=== PATIENT | male | born 1970 | race Caucasian/White ===

== ENCOUNTER 2017-01-31 02:14 | Emergency (ER) | payer SELFPAY ==
[~2017-01-31] VITALS: Ht 177.8 cm; Wt 85.0 kg
[~2017-01-31 02:14] MED LIST: CHLO25; LORA-474 PO; Z.0.NO CURRENT MEDS; ZOFR4TAB3 SL
[2017-01-31 02:31] VITALS: BP 127/86; PULSE 81; RESP 16; TEMP 98.4; O2SAT 97
--- NOTE | 2017-01-31 02:32 | PD ---
HPI Chief Complaint: alcohol intoxication Time Seen by Provider: 02:26 Travel History International Travel<30 days: No Contact w/Intl Traveler<30days: No Traveled to known affect area: No History of Present Illness HPI 46-year-old male with long-standing history of alcoholism, presents to the emergency department under a Michael act for evaluation. Patient was found lying in the street. She reports drinking a large amount of alcohol today. Denies any trauma. Denies any pain. Denies any suicidal or homicidal ideations. He denies any other symptoms at this time. [facility] Past Medical History Diminished Hearing: No Hypertension: Yes Social History Alcohol Use: Yes (ETOH DAILY) Tobacco Use: Yes Substance Use: No Allergies-Medications (Allergen,Severity, Reaction): Coded Allergies: penicillin G (Unverified Allergy, Intermediate, 12/22/16) Reported Meds & Prescriptions Reported Meds & Active Scripts Active No Active Prescriptions or Reported Medications Review of Systems ROS Limitations: Intoxication Except as stated in HPI: all other systems reviewed are Neg Physical Exam Exam Limitations: Intoxication Narrative GENERAL: Well-nourished male patient, clinically intoxicated with slurred speech , but in no acute distress. SKIN: Focused skin assessment warm/dry. HEAD: Atraumatic. Normocephalic. EYES: Pupils equal and round. No scleral icterus. No injection or drainage. ENT: No nasal bleeding or discharge. Mucous membranes pink and moist. NECK: Trachea midline. No JVD. CARDIOVASCULAR: Regular rate and rhythm. No murmur appreciated. RESPIRATORY: No accessory muscle use. Clear to auscultation. Breath sounds equal bilaterally. GASTROINTESTINAL: Abdomen soft, non-tender, nondistended. Hepatic and splenic margins not palpable. MUSCULOSKELETAL: No obvious deformities. No clubbing. No cyanosis. No edema. NEUROLOGICAL: Arousable. Oriented 3. Moves all extremities spontaneously. Slurred speech. Data Data Last Documented VS Vital Signs Date Time Temp Pulse Resp B/P (MAP) Pulse Ox O2 Delivery O2 Flow Rate FiO2 01/31/17 04:25 78 14 132/84 (100) 99 Room Air 01/31/17 02:31 98.4 [facility] Medical Decision Making Medical Screen Exam Complete: Yes Emergency Medical Condition: Yes Medical Record Reviewed: Yes Differential Diagnosis Intoxication versus polysubstance abuse versus mood disorder versus personality disorder Narrative Course 46-year-old male presents to the emergency department under a Michael act. Patient is clinically intoxicated. He admits to drinking a large amount of alcohol. He has no obvious trauma. He answers my questions appropriately although he does have slurred speech. The patient will be monitored until he is clinically sober at which time he'll be discharged. Diagnosis Primary Impression: Alcohol intoxication Qualified Codes: F10.929 - Alcohol use, unspecified with intoxication, unspecified Referrals: [facility] (Out patient) Primary Care Physician Patient Instructions: Abuse of Alcohol (ED), General Instructions Additional Instructions: Consumed alcohol in moderation Seek assistance in stopping to drink alcohol at [facility] or other detox facility Return immediately to the emergency department with any acute worsening of symptoms Med/Other Pt SpecificInfo: No Change to Meds Scripts No Active Prescriptions or Reported Meds Disposition: 01 DISCHARGE HOME Condition: Stable Margaux Cagle Jan 31, 2017 02:32
[2017-01-31 04:25] VITALS: BP 132/84; PULSE 78; RESP 14; O2SAT 99
== END 2017-01-31 10:57 | disposition home or self-care (01) ==
LOC: NEPB 02:14 → NEPD 10:57
DX: F10.229 Alcohol dependence with intoxication, unspecified (principal)
CPT/HCPCS: 99283

== ENCOUNTER 2018-06-21 20:50 | Inpatient (IN) ==
--- NOTE | 2018-06-21 21:24 | ED ---
HPI General Chief complaint: Alcohol Stated complaint: psych eval Time Seen by Provider: 06/21/18 21:23 Source: patient and family Mode of arrival: ambulatory Limitations: no limitations History of Present Illness HPI narrative: Patient was brought in by his sister, apparently he has been drinking alcohol heavily and started to have thoughts of suicidal ideation. He has easy access to multiple firearms which he collected and brought over to his sister and turn him over to her because he was afraid that he would use them on himself. Patient voices that he just wants to end it all. However his sister was able to convince him to come and seek some help Onset (ago): day(s) Radiation: other Severity: moderate (This is to quantify the patient's depressed feelings patient does not have any pain) Quality: other (No pain) Pain Consistency: other (No pain) Relieving factors: none Exacerbating factors: none Associated symptoms: Reports denies other symptoms Related Data Home Medications Medication Instructions Recorded Confirmed No Known Home Medications 04/26/18 06/21/18 Allergies Allergy/AdvReac Type Severity Reaction Status Date / Time penicillin G Allergy Intermediate Anaphylaxis Verified 06/21/18 20:57 Review of Systems ROS: all other systems reviewed are negative [facility] Medical History Medical History Arthritis (Acute) Surgical History Surgical History H/O knee surgery (Acute) Social History Social History Substance History: No History of Abuse Second Hand Smoke Exposure: No Smoking Status: Never smoker Tobacco Type: Cigarettes How Often Do You Have a Drink Containing Alcohol: 4 or more times a week Recent Travel in [facility] within the Last 8 Weeks: No Recent Out of Country Travel within the Last 8 Weeks: No Immunization History Tetanus Immunization: Unsure Exam Narrative Exam Narrative: GENERAL: MALE patient in no apparent distress. HOWEVER GOT TEARFUL DURING HPI SKIN: Warm and dry. HEAD: Atraumatic. Normocephalic. EYES: Pupils equal and round. No scleral icterus. No injection or drainage. ENT: No nasal bleeding or discharge. Mucous membranes pink and moist. NECK: Trachea midline. No JVD. CARDIOVASCULAR: Regular rate and rhythm. no rubs or gallops RESPIRATORY: No accessory muscle use. Clear to auscultation. Breath sounds equal bilaterally. GASTROINTESTINAL: Abdomen soft, non-tender, nondistended. No rebound or guarding MUSCULOSKELETAL: Extremities without clubbing, cyanosis, or edema. No obvious deformities. NEUROLOGICAL: Awake and alert. No obvious cranial nerve deficits. Motor grossly within normal limits. Five out of 5 muscle strength in the arms and legs. Normal speech. PSYCHIATRIC: DEPRESSED mood and SAD affect; Course Initial Documented Vital Signs Temperature 98.6 F 06/21/18 20:57 Pulse Rate 112 H 06/21/18 20:57 Respiratory Rate 16 06/21/18 20:57 Blood Pressure 169/102 H 06/21/18 20:57 Pulse Oximetry 94 L 06/21/18 20:57 Last Documented Vital Signs Temperature 98.6 F 06/21/18 20:57 Pulse Rate 112 H 06/21/18 20:57 Respiratory Rate 16 06/21/18 20:57 Blood Pressure 169/102 H 06/21/18 20:57 Pulse Oximetry 94 L 06/21/18 20:57 Medical Decision Making MDM Narrative Medical Screen Exam Complete: Yes Emergency Medical Condition: Yes Discharge Plan Discharge Disposition Patient Disposition: Sign Out(ED Internal Use Only) Physicians Team ED Provider: David Mina Rxs /Orders / Referrals /Forms Prescriptions: No Action No Known Home Medications RF: 0 Status ED Status: With Doctor
[2018-06-21 21:54] LABS: Baso % (Auto) 0.9 % (0.0-2.0); Eos % (Auto) 0.4 % (0.0-4.0); Hematocrit 41.5 % (39.0-51.0); Lymph # (Auto) 1.2 th/mm3 (1.0-4.8); Lymph % (Auto) 27.6 % (9.0-44.0); Mean Corpuscular HGB Conc 33.8 % (32.0-36.0); Mean Corpuscular Hemoglobin 30.5 pg (27.0-34.0); Mean Corpuscular Volume 90.4 fL (80.0-100.0); Mean Platelet Volume 6.4 fL (7.0-11.0); Mono # (Auto) 0.5 th/mm3 (0.0-0.9); Mono % (Auto) 12.3 % (0.0-8.0); Neut # (Auto) 2.6 th/mm3 (1.8-7.7); Neut % (Auto) 58.8 % (16.0-70.0); Platelet Count 266 th/mm3 (150-450); Red Blood Count 4.59 mil/mm3 (4.50-5.90); Red Cell Distribution Width 25.6 % (11.6-17.2); White Blood Count 4.4 th/mm3 (4.0-11.0)
[2018-06-21 22:05] LABS: Alanine Aminotransferase 61 U/L (12-78); Albumin 3.8 g/dL (3.4-5.0); Anion Gap 10 meq/L (5-15); Aspartate Aminotransferase 112 U/L (15-37); Blood Urea Nitrogen 9 mg/dL (7-18); Calcium 8.4 mg/dL (8.5-10.1); Carbon Dioxide 26.9 meq/L (21.0-32.0); Chloride 102 meq/L (98-107); Glomerular Filtration Rate 49 mL/min (>89); Glucose,Random 105 mg/dL (74-106); Potassium 3.9 meq/L (3.5-5.1); Sodium 139 meq/L (136-145)
[2018-06-21 22:10] LABS: Alkaline Phosphatase 92 U/L (45-117); Total Protein 8.4 g/dL (6.4-8.2)
[2018-06-21 22:15] LABS: Alcohol 331 mg/dL (0-5)
[2018-06-21 22:29] LABS: Spherocytes Occ
[2018-06-21 22:30] LABS: Ovalocytes 1+; Platelet Estimate Normal (Normal); Platelet Morphology Normal (Normal)
[2018-06-21 22:37] LABS: Amphetamine Screen,Urine Neg (Neg); Barbiturate Screen,Urine Neg (Neg); Cannabinoid Screen,Urine Neg (Neg); Cocaine Screen,Urine Pos (Neg)
[2018-06-21 22:42] LABS: Opiate Screen,Urine Neg (Neg)
[2018-06-21] MEDS ORDERED: Haloperidol Inj 5 MG/ML Ampul IV.PUSH PRN (22:51)
[2018-06-22] MEDS ORDERED: Aluminum/Magnesium/Simethacone Susp 30 ML UDC PO PRN (10:51)
[2018-06-22] MEDS ORDERED: Acetaminophen 325 MG Tablet PO PRN (10:51)
[2018-06-22] MEDS ORDERED: Haloperidol Inj 5 MG/ML Ampul IV.PUSH PRN (11:07)
[2018-06-22] MEDS: LORazepam 1 MG Tablet PO PRN ×3 (12:41→21:32)
[2018-06-22] MEDS: Folic Acid 1 MG Tablet PO SCH (12:41)
[2018-06-22] MEDS: Multivitamin/Minerals Therapeutic Tablet PO SCH (15:41)
--- NOTE | 2018-06-22 16:36 | ED ---
HPI - Psych - General Time Seen by Psych Provider: 10:22 Source: patient, family Mode of arrival: ambulatory Limitations: no limitations - History of Present Illness MD complaint: feels depressed Onset (ago): year(s) Duration: intermittent, changing over time, getting worse History of same: Yes Relieving factors: none Exacerbating factors: alcohol Context: recent alcohol abuse Associated psychiatric symptoms: depression, suicidal ideation, visual hallucinations Associated symptoms: nausea Treatments prior to arrival: placed on mental health hold - General Chief Complaint: Alcohol Stated Complaint: psych eval Time Seen by Provider: 06/21/18 21:23 - History of Present Illness HPI Narrative: This is a 48-year old , male who presents to this emergency department for suicidal ideation in the context of intoxication. He was placed under Shah act by the ED physician. Reviewed electronic medical record, labs, discussed case with staff. Patient's toxicology screen is noted to be positive for cocaine and his serum blood alcohol level was 0.331 at 9:35 PM last evening. Patient was assessed in 110. He is found disheveled and clad in [facility]. He is awake, alert, and oriented x4. His speech is slow as are his responses to my questions. He is denying active suicidal ideation but states that in the context of his alcoholism he is afraid he would take his life. He denies being homicidal or experiencing auditory hallucinations. He does endorse visual hallucinations in the context of his withdrawal stating that "when I look at the keller I see faces and glimpses of things." Patient is easily distractible throughout her conversation but attempts to remain cooperative. There is no indication of psychosis nor of rubens. I can elicit no delusional material. "I feel a little shaky." Patient reports that he has had on again off again problem with alcohol spanning decades. He states that he was on a 30-day program in [place] approximately 15 years ago. He reports that he remained sober for approximately 1-1/2 years after that. He then began drinking every day however, his drinking grew worse over the holidays. He reports now that he typically drinks 4 pack +325 ounce beers daily and states that his first drink is typically around 7 AM. 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 He is a high school graduate. He denies any previous admissions for psychiatric issues. He denies having established with an outpatient psychiatric provider as well. He does state he received fluoxetine while at [facility] years ago but did not continue it once discharged. He reports that he attempted suicide by cutting his wrists 8 years ago. He denies any knowledge of familial mental health issues. He does state that he was a cutter as a teenager. He denies smoking cigarettes, states that he drinks daily, and reports smoking marijuana "1-2 times a year". (Henna Vega) - Related Data Home Medications Medication Instructions Recorded Confirmed No Known Home Medications 04/26/18 06/21/18 Allergies Allergy/AdvReac Type Severity Reaction Status Date / Time penicillin G Allergy Intermediate Anaphylaxis Verified 06/21/18 20:57 Review of Systems All other systems reviewed negative except as stated in [facility] - History History Provided By: Patient - Medical History Medical History: Medical History (Last Reviewed 06/22/18 @ 16:32 by YURIY Mitchell) Arthritis - Surgical History Surgical History: Surgical History (Last Reviewed 06/22/18 @ 16:32 by YURIY Mitchell) H/O knee surgery - Tobacco History Second Hand Smoke Exposure: Yes Smoking Status: Never smoker Tobacco Type: Cigarettes - Alcohol History How Often Do You Have a Drink Containing Alcohol: 4 or more times a week - Substance Use History Substance History: Active Abuse, Past History - Substance Use Type Alcohol Status: Active Route Used: By Mouth Frequency: daily Reason for Use: Calm Down, Feels Good Crack/Cocaine Status: Active Route Used: Inhalation Frequency: this was one time event Reason for Use: Calm Down Marijuana Status: Active Route Used: Inhalation Frequency: infrequently Reason for Use: Calm Down - Travel History Recent Travel in the [place] Within the Last 8 Weeks: No Recent Travel Out of the Country Within the Last 8 Weeks: No - Immunization History Tetanus Immunization: >5 Years Hx Influenza Vaccine This Season: No Psychiatric History - Psychiatric History Psychiatric Treatment History: History Substance Abuse Treatment History of Inpatient Treatment: No Firearms in Home: No - Psychiatric History History of substance abuse treatment. (Henna Vega) - Family Psychiatric History Denies (Henna Vega) Physical Exam - General Limitations: no limitations General appearance: anxious - Head Head exam: atraumatic - Psychiatric Psychiatric exam: Present: anxious - Skin Skin exam: Present: diaphoresis Mental Status Examination Appearance: Disheveled Consciousness: Alert Orientation: x4 Motor Activity: Normal gait Speech: Hesitant, Slow Language: Adequate Fund of Knowledge: Adequate Attention and Concentration: Easily distracted Memory: Unremarkable Mood: Anxious Affect: Anxious Thought Process & Associations: Intact, Logical Thought Content: Appropriate Hallucination Type: Visual Delusion Type: None Suicidal Ideation: Yes Suicidal Plan: No Suicidal Intention: No Homicidal Ideation: No Homicidal Plan: No Homicidal Intention: No Insight: Fair Judgment: Impulsive Initial Documented Vital Signs Temperature 98.6 F 06/21/18 20:57 Pulse Rate 112 H 06/21/18 20:57 Respiratory Rate 16 06/21/18 20:57 Blood Pressure 169/102 H 06/21/18 20:57 Pulse Oximetry 94 L 06/21/18 20:57 Last Documented Vital Signs Temperature 98.4 F 06/22/18 12:25 Pulse Rate 89 06/22/18 12:25 Respiratory Rate 17 06/22/18 12:25 Blood Pressure 162/104 H 06/22/18 12:25 Pulse Oximetry 96 06/22/18 12:25 MDM - Psych - Diagnosis (1) Alcohol-induced mood disorder Code(s): F10.94 - Alcohol use, unspecified with alcohol-induced mood disorder Status: Acute - Lab Data Result diagrams: 06/21/18 21:35 06/21/18 21:35 - [facility] Narrative Medical decision making narrative: Given that the patient is actively withdrawing from alcohol at this time and endorses suicide in the context of his alcoholism he is being admitted to a locked inpatient psychiatric unit for further evaluation and treatment as deemed necessary. He will be admitted under the Shah act with a [facility] protocol in place. (Henna Vega) - Lab Data Lab Results 06/21/18 06/21/18 06/21/18 Range/Units 21:35 21:35 21:50 WBC 4.4 (4.0-11.0) th/mm3 RBC 4.59 (4.50-5.90) mil/mm3 Hgb 14.0 (13.0-17.0) gm/dL Hct 41.5 (39.0-51.0) % MCV 90.4 (80.0-100.0) fL MCH 30.5 (27.0-34.0) pg MCHC 33.8 (32.0-36.0) % RDW 25.6 H (11.6-17.2) % Plt Count 266 (150-450) th/mm3 MPV 6.4 L (7.0-11.0) fL Prelim Diff (Auto) Slide review pending Neut % (Auto) 58.8 (16.0-70.0) % Lymph % (Auto) 27.6 (9.0-44.0) % [place] % (Auto) 12.3 H (0.0-8.0) % Eos % (Auto) 0.4 (0.0-4.0) % Baso % (Auto) 0.9 (0.0-2.0) % Neut # (Auto) 2.6 (1.8-7.7) th/mm3 Lymph # (Auto) 1.2 (1.0-4.8) th/mm3 [place] # (Auto) 0.5 (0.0-0.9) th/mm3 Eos # (Auto) 0.0 (0.0-0.4) th/mm3 Baso # (Auto) 0.0 (0.0-0.2) th/mm3 WBC Differential . Diff Scan Auto diff confirmed Differential Comment . Platelet Estimate Normal (Normal) Platelet Morphology Normal (Normal) Spherocytes Occ H (None) Ovalocytes 1+ H (None) Sodium 139 (136-145) meq/L Potassium 3.9 (3.5-5.1) meq/L Chloride 102 (98-107) meq/L Carbon Dioxide 26.9 (21.0-32.0) meq/L Anion Gap 10 (5-15) meq/L BUN 9 (7-18) mg/dL Creatinine 1.53 H (0.60-1.30) mg/dL Estimated GFR 49 L (>89) mL/min Random Glucose 105 (74-106) mg/dL Calcium 8.4 L (8.5-10.1) mg/dL Total Bilirubin 0.3 (0.2-1.0) mg/dL AST 112 H (15-37) U/L ALT 61 (12-78) U/L Alkaline Phosphatase 92 (45-117) U/L Total Protein 8.4 H (6.4-8.2) g/dL Albumin 3.8 (3.4-5.0) g/dL Urine Opiates Screen Neg (Neg) Ur Barbiturates Screen Neg (Neg) Ur Amphetamines Screen Neg (Neg) U Benzodiazepines Scrn Neg (Neg) Urine Cocaine Screen Pos H (Neg) U Cannabinoids Screen Neg (Neg) Serum Alcohol 331 H (0-5) mg/dL
[2018-06-23] MEDS: LORazepam 1 MG Tablet PO PRN (05:51)
[2018-06-23 07:47] LABS: Calcium 9.3 mg/dL (8.5-10.1); Potassium 3.6 meq/L (3.5-5.1)
[2018-06-23 07:49] LABS: Chol/HDL Ratio 2.58 Ratio; HDL Cholesterol 99.5 mg/dL (40.0-60.0)
[2018-06-23] MEDS: Multivitamin/Minerals Therapeutic Tablet PO SCH (08:31)
[2018-06-23] MEDS: Folic Acid 1 MG Tablet PO SCH (08:31)
--- NOTE | 2018-06-23 11:40 | ECG ---
Date Performed: 06/23/2018 Time Performed: 07:57:26 PTAGE: 48 years EKG: Sinus rhythm POOR R-WAVE PROGRESSION CANNOT EXCLUDE ANTEROSEPTAL IL VS SEPTAL LEAD PLACEMENT. ABNORMAL ECG NO PREVIOUS TRACING DOCTOR: Saad Neil Interpretating Date/Time 06/23/2018 11:37:29
--- NOTE | 2018-06-23 13:08 | P.HPPSY ---
Provisional Diagnosis Admission Date: June 22, 2018 10:48 Strang I.: Major depressive disorder, alcohol use disorder Competence Certification of Person's Competence To Provide Express and Informed Consent I have personally examined Romero Cooley, a person being served at [facility] on, June 23, 2018 1252. Express and informed consent means consent voluntarily given in writing, by a competent person, after sufficient explanation and disclosure of the subject matter involved to enable the person to make a knowing and willful decision without any element of force, fraud, deceit, duress, or other form of constraint or coercion. This person is 18 years of age or older, is not now known to be incompetent to consent to treatment with a guardian advocate, and does not have a health care surrogate or proxy currently making medical treatment decisions. I have found this person to be one of the following: [xxx] Competent to provide express and informed consent, as defined above, for voluntary admission to this facility and is competent to provide express and informed consent for treatment. He/she has the consistent capacity to make well reasoned, willful, and knowing decisions concerning his or her medical or mental health treatment. The person fully and consistently understands the purpose of the admission for examination/placement and is fully capable of personally exercising all rights assured [place] [] Incompetent to provide express and informed consent to voluntary admission, and this is incompetent to provide express and informed consent to treatment. The person must be transferred to involuntary status and a petition for a guardian advocate filed with the Circuit Court. [] Refusing to provide express and informed consent to voluntary admission but is competent to provide express and informed consent for treatment. The person must be discharged or transferred to involuntary status. Form shall be completed within 24 hours of a person's arrival at the receiving facility and filed in the clinical record of each person: 1. Admitted on a voluntary basis 2. Permitted to provide express and informed consent to his/her own treatment 3. Allowed to transfer from involuntary to voluntary status 4. Prior to permitting a person to consent to his or her own treatment after having been previously found incompetent to consent to treatment. History of Present Illness Capacity: Has capacity History of Present Illness: Patient is a 48-year-old man, , has 4 children, domiciled sister and mother, with a legal history significant for previous DUIs, past psychiatric history of depression, alcohol use disorder, denies prior psychiatric admissions, reports one previous suicide attempt via cutting it years ago, remote history of cutting as a teenager, no outpatient mental health provider at this time, brought in by sister due to having suicide ideation in the context of cocaine and alcohol intoxication which patient was admitted to the inpatient psychiatry for further evaluation and management. As per chart patient was brought in by sister endorsing suicide ideation which he had brought over his firearms to her sister asking for help stating that he wanted to end it all. Patient's BAL was 331, cocaine positive on urine toxicology, noted to have mild hyponatremia as per labs. Patient was Shah act by ED physician. Patient was found lying in hospital bed noted to be cooperative, noted to have mild tremors noted with some speech delay. Patient states that he has been drinking on a daily basis for the past 3 months but was 6 months prior sober. He states his longest sobriety was 1-1/2 years after rehabilitation [address] at that time. He reports for the past couple of weeks that he is having disruptive sleep, decreased appetite energy and concentration along with feeling less motivated and feeling depressed for the past 2-3 weeks along with suicide ideation. He states that stressors include having difficulty to quit drinking, having to pay child support and work not being steady. He reports also having had hopelessness and helplessness which occurred on and off but denying any auditory hallucinations. He states that recently been having visual hallucinations which he believes is secondary to his withdrawal but denying any suicide ideation at this time. He states having a sister is firearms due to his concern of having suicide ideations. Patient agrees to voluntary admission and agrees to starting antidepressant treatment along with continued medical management of his withdrawal at this time. Patient states being interested in rehabilitation program to engage in again but unsure whether he would like inpatient versus outpatient. This will be continued to be explored during his admission. Family psychiatric history: Aunt with depression, no suicides in the family Past psychiatric history: Previous psychiatric diagnoses depression, alcohol use disorder, denies any previous psychiatric admissions, history of 1 suicide attempt via cutting, 8 years ago, reports remote history of self interest behavior cutting as a teenager. Patient has no outpatient mental health follow- up, reports previous medication trials include Prozac and Wellbutrin which he last took 2 years ago. Substance use history: Alcohol use daily as stated in HPI, denies any drug use although urine toxicology was positive for cocaine, reports marijuana use 1-2 times per year. Patient has had one previous rehabilitation program 2000 as stated above. Past OB history: Hypertension, arthritis, was having suffered one seizure after head trauma 2004 Allergies: Penicillin Social history: , high school graduate, has 4 children, domiciled sister and mother, legal history of previous DUIs and driving with a suspended license, currently employed. - Inpatient Certification I certify that the inpatient services were ordered in accordance with Medicare regulations governing the order. This includes certification that hospital inpatient services are reasonable and necessary and in the case of services not specified as inpatient-only under 42 CFR 419.22(n), that they are appropriately provided as inpatient services in accordance to with the 2-midnight benchmark under 43 CFR 412.3(e) I certify that inpatient psychiatric hospital services are medically necessary. Evaluation and treatment and/or diagnostic testing are expected to improve the patient's condition. The patient needs on a daily basis, active treatment furnished directly by or requiring the supervision of inpatient psychiatric facility personnel. Estimated Total Length of Stay (Days): 5 Plans for Post Hospital Care: Home Review of Systems All other systems reviewed negative except as stated in HPI PMFSH - History History Provided By: Patient, Medical Record - Medical History Medical History: Medical History (Last Reviewed 06/23/18 @ 08:10 by Paolo Bella) Arthritis - Surgical History Surgical History: Surgical History (Last Reviewed 06/23/18 @ 08:10 by Paolo Bella) H/O knee surgery - Tobacco History Second Hand Smoke Exposure: Yes Smoking Status: Never smoker Tobacco Type: Cigarettes - Alcohol History How Often Do You Have a Drink Containing Alcohol: 4 or more times a week - Substance Use History Substance History: Active Abuse, Past History - Substance Use Type Alcohol Status: Active Route Used: By Mouth Frequency: daily Reason for Use: Calm Down, Feels Good Crack/Cocaine Status: Active Route Used: Inhalation Frequency: this was one time event Reason for Use: Calm Down Comment: Patient denies usage of any other drugs to counselor. Marijuana Status: Active Route Used: Inhalation Frequency: infrequently Reason for Use: Calm Down Comment: Patient reports he smokes maybe 1-2 times per year. - Travel History Recent Travel in the [place] Within the Last 8 Weeks: No Recent Travel Out of the Country Within the Last 8 Weeks: No - Immunization History Tetanus Immunization: >5 Years Hx Influenza Vaccine This Season: No Quality Measures - Psychiatric History Violence risk to others in the last 6 months: Low Violence risk to self in the last 6 months: Elevated due to recent suicidal ideation - Substance Abuse History Drug or alcohol use in the past 12 months: See HPI - Patient Strengths Patient's strengths (minimum of 2): Verbal and communicative Medications and Allergies Active Medications: Active Medications Acetaminophen (Tylenol) 650 mg PO Q4H PRN PRN Reason: Pain 1-5 or Temp >101F Al Hydrox/Mg Hydrox/Simethicone (Mag-Al Plus Susp Liq) 30 ml PO Q6H PRN PRN Reason: DYSPEPSIA Al Hydroxide/Mg Hydroxide (Milk Of Magnesia Liq) 30 ml PO Q12H PRN PRN Reason: Mild Constipation Clonidine HCl (Catapres) 0.1 mg PO Q6H PRN PRN Reason: For SBP >/= 180, DBP >/= 100 Last Admin: 06/23/18 05:51 Dose: 0.1 mg Diphenhydramine HCl (Benadryl) 50 mg PO HS PRN PRN Reason: INSOMNIA Flumazenil (Romazicon Inj) 0.2 mg IV.PUSH Q1M PRN PRN Reason: OVERSEDATION Folic Acid (Folic Acid) 1 mg PO DAILY [facility]ILMA Stop: 06/27/18 11:29 Last Admin: 06/23/18 08:31 Dose: 1 mg Haloperidol Lactate (Haldol Inj) 1 mg IV.PUSH Q15M PRN PRN Reason: for severe agitation Hydroxyzine HCl (Atarax) 50 mg PO Q6H PRN PRN Reason: ANXIETY Lorazepam (Ativan Inj) 1 mg IV.PUSH Q4H PRN PRN Reason: for CIWA 8-10 Lorazepam (Ativan Inj) 2 mg IV.PUSH Q15M PRN PRN Reason: for CIWA > 20 Lorazepam (Ativan Inj) 2 mg IV.PUSH Q1H PRN PRN Reason: for CIWA 15-20 Lorazepam (Ativan Inj) 2 mg IV.PUSH Q2H PRN PRN Reason: for CIWA 11-14 Lorazepam (Ativan) 2 mg PO Q2H PRN PRN Reason: for CIWA 11-14 Last Admin: 06/22/18 09:14 Dose: 2 mg Lorazepam (Ativan) 1 mg PO Q4H PRN PRN Reason: for CIWA 8-10 Last Admin: 06/23/18 05:51 Dose: 1 mg Multivitamins/Minerals (Theragran-M) 1 tab PO DAILY [facility] Stop: 06/27/18 11:29 Last Admin: 06/23/18 08:31 Dose: 1 tab Ondansetron HCl (Zofran Odt) 4 mg PO Q6H PRN PRN Reason: NAUSEA OR VOMITING Last Admin: 06/23/18 04:49 Dose: 4 mg Sertraline HCl (Zoloft) 50 mg PO DAILY [facility] Thiamine HCl (Vitamin B1) 100 mg PO DAILY [facility] Last Admin: 06/23/18 08:31 Dose: 100 mg Allergies Allergy/AdvReac Type Severity Reaction Status Date / Time penicillin G Allergy Intermediate Anaphylaxis Verified 06/21/18 20:57 Home Medications Medication Instructions Recorded Confirmed Type No Known Home Medications 04/26/18 06/21/18 History Results - Labs CBC & Chem 7: 06/21/18 21:35 06/23/18 06:42 Labs: Laboratory Results - last 24 hr 06/23/18 06:42 Sodium 135 L Potassium 3.6 Chloride 97 L Carbon Dioxide 29.0 Anion Gap 9 BUN 9 Creatinine 1.30 Estimated GFR 59 L Random Glucose 98 Calcium 9.3 D Triglycerides 117 Cholesterol 257 H LDL Cholesterol, Calc 134 H HDL Cholesterol 99.5 H Cholesterol/HDL Ratio 2.58 Exam Vital signs: Vital Signs 06/22/18 17:03 06/23/18 06:01 06/23/18 06:27 Temperature 98.6 F 97.2 F L Pulse Rate 89 90 Respiratory Rate 17 18 Blood Pressure 152/95 H 170/106 H 155/87 H Pulse Oximetry 96 99 Intake & Output 06/22/18 06/23/18 06/23/18 18:59 06:59 18:59 Intake Total 120 / 120 240 / 240 Balance 120 / 120 240 / 240 Weight 76.2 kg Intake: Oral 120 / 120 240 / 240 Other: # Voids 2 Weight On Admission 76.2 kg Narrative: Patient not noted to be in acute distress, no gross motor abnormalities, signs of tremor, no EPS, no psychomotor agitation or retardation. - Constitutional no acute distress, cooperative Mental Status Examination Appearance: Disheveled Consciousness: Alert Orientation: x4 Motor Activity: Normal gait Speech: Hesitant, Slow Language: Adequate Fund of Knowledge: Adequate Attention and Concentration: Easily distracted Memory: Unremarkable Mood: Anxious Affect: Anxious Thought Process & Associations: Intact, Logical Thought Content: Appropriate Hallucination Type: Visual Delusion Type: None Suicidal Ideation: Yes (Denies at this time but currently unreliable to contract for safety) Suicidal Plan: No Suicidal Intention: No Homicidal Ideation: No Homicidal Plan: No Homicidal Intention: No Insight: Fair Judgment: Impulsive Assessment and Plan - Assessment (1) Major depressive disorder Code(s): F32.9 - Major depressive disorder, single episode, unspecified Status : Acute (2) Alcohol abuse Code(s): F10.10 - Alcohol abuse, uncomplicated Status: Acute - Plan Plan: Estimated LOS: [] days Patient is a 48-year-old man who carries a diagnosis of depression, alcohol use disorder, no previous psychiatric admissions, one remote suicide attempt via cutting 8 years ago, history of self interest behavior via cutting as a teenager, with a past medical significant for hypertension, recently admitted under Shah act by ED physician after presenting with his sister to the ED which patient was endorsing suicide ideation in the context of alcohol intoxication and cocaine intoxication. Patient this time continues to have active withdrawal symptoms which is managed by WA protocol, has had depressive symptoms since suicide ideations for the past several weeks which patient requires inpatient psychiatric stabilization and for safety at this time. We will start patient on sertraline 50 mg p.o. daily for depression, continue to monitor mood and behavior. Patient agrees to voluntary admission has capacity to treatment. Social work intervention for psychosocial assessment. We will explore possibilities of patient engaging in rehabilitation program. Discharge planning in progress. Justification for Continued Inpatient Stay: At risk of further decompensation at lower level care.
[2018-06-23] MEDS: Sertraline 50 MG Tablet PO SCH (14:12)
[2018-06-23 16:22] LABS: Hemoglobin A1c 5.3 % (4.3-6.0)
[2018-06-24] MEDS: Multivitamin/Minerals Therapeutic Tablet PO SCH (08:03)
[2018-06-24] MEDS: Sertraline 50 MG Tablet PO SCH (08:03)
[2018-06-24] MEDS: Folic Acid 1 MG Tablet PO SCH (08:03)
[2018-06-24] MEDS: LORazepam 1 MG Tablet PO PRN (13:41)
--- NOTE | 2018-06-24 14:12 | P.PNPSY ---
Subjective Remarks: Patient seen for follow up; chart reviewed. Discussion with nursing staff reported that patient continues to have blunted affect but calm and cooperative with staff allowing for care, had poor sleep this evening, and endorsing some visual hallucinations he continues on CIWA protocol. Patient was found lying in hospital bed noted B, cooperative. Patient noted to have some speech latency still, with mild tremors noted, stated he had trouble with sleep last evening but was able to receive Benadryl in the middle night which helped. Patient continues with poor appetite and states that is slowly getting better continues report feeling depressed but also states that is improving denying any suicide ideations at this time. Patient denies any perceptual services but recalls having visual hallucinations which are vague which appear to occur as he is falling asleep. Patient continues to be interested in rehabilitation program but mostly outpatient as he states he needs to pay for child support and work. Patient denies any HI or delusions at this time. Review of Systems All other systems reviewed negative except as stated in HPI Mental Status Examination Appearance: Disheveled Consciousness: Alert Orientation: x4 Motor Activity: Normal gait Speech: Hesitant, Slow Language: Adequate Fund of Knowledge: Adequate Attention and Concentration: Easily distracted Memory: Unremarkable Mood: Anxious Affect: Anxious (Lessening) Thought Process & Associations: Intact, Logical Thought Content: Appropriate Hallucination Type: Visual Delusion Type: None Suicidal Ideation: Yes (denies today) Suicidal Plan: No Suicidal Intention: No Homicidal Ideation: No Homicidal Plan: No Homicidal Intention: No Insight: Fair Judgment: Impulsive Assessment and Plan - Assessment (1) Major depressive disorder Code(s): F32.9 - Major depressive disorder, single episode, unspecified Status : Acute (2) Alcohol abuse Code(s): F10.10 - Alcohol abuse, uncomplicated Status: Acute - Plan Plan: Patient continued with depressed mood but states it is improving denying suicide ideations today. Patient continues to be noted with mild withdrawal symptoms continues on CIWA protocol. We will continue current treatment. We will change diphenhydramine as scheduled to assist with sleep disturbance. Continue monitor mood and behavior. Patient continues to be interested in rehabilitation program but stated he has mostly treatment outpatient as he continued to need to work to the past his child support. Continue to monitor with behavior. Discharge planning in progress. Justification for Continued Inpatient Stay: At risk of further decompensation at lower level care.
[2018-06-24 14:42] LABS: Albumin 3.9 g/dL (3.4-5.0); Anion Gap 8 meq/L (5-15); Aspartate Aminotransferase 57 U/L (15-37); Blood Urea Nitrogen 15 mg/dL (7-18); Calcium 9.8 mg/dL (8.5-10.1); Carbon Dioxide 30.2 meq/L (21.0-32.0); Chloride 99 meq/L (98-107); Glomerular Filtration Rate 50 mL/min (>89); Glucose,Random 110 mg/dL (74-106); Potassium 3.9 meq/L (3.5-5.1); Sodium 137 meq/L (136-145)
[2018-06-24 14:43] LABS: Alanine Aminotransferase 49 U/L (12-78)
[2018-06-24 14:45] LABS: Alkaline Phosphatase 93 U/L (45-117); Total Protein 8.8 g/dL (6.4-8.2)
[2018-06-25] MEDS: Sertraline 50 MG Tablet PO SCH (08:00)
[2018-06-25] MEDS: LORazepam 1 MG Tablet PO PRN ×3 (08:00→15:52)
[2018-06-25] MEDS: Folic Acid 1 MG Tablet PO SCH (08:00)
[2018-06-25] MEDS: Multivitamin/Minerals Therapeutic Tablet PO SCH (08:00)
--- NOTE | 2018-06-25 17:19 | P.PNPSY ---
Subjective Remarks: Patient was seen to review a right of release request. After psychoeducation patient has decided to rescind his request. Patient continues to feel hopeless and helpless but denies suicidal or homicidal ideation intent or plan. He is behaving well on the unit. No outbursts. Minimizes drug use. Continues to score highly on the CIWA and his getting Ativan per protocol Review of Systems All other systems reviewed negative except as stated in HPI Mental Status Examination Appearance: Disheveled Consciousness: Alert Orientation: x4 Motor Activity: Normal gait Speech: Hesitant, Slow Language: Adequate Fund of Knowledge: Adequate Attention and Concentration: Easily distracted Memory: Unremarkable Mood: Anxious Affect: Anxious (Lessening) Thought Process & Associations: Intact, Logical Thought Content: Appropriate Hallucination Type: Visual Delusion Type: None Suicidal Ideation: Yes (denies today) Suicidal Plan: No Suicidal Intention: No Homicidal Ideation: No Homicidal Plan: No Homicidal Intention: No Insight: Fair Judgment: Impulsive Assessment and Plan - Assessment (1) Major depressive disorder Code(s): F32.9 - Major depressive disorder, single episode, unspecified Status : Acute (2) Alcohol abuse Code(s): F10.10 - Alcohol abuse, uncomplicated Status: Acute - Plan Plan: Continue current treatment plan Justification for Continued Inpatient Stay: Patient would decompensate in a less restrictive setting
[2018-06-26] MEDS: Folic Acid 1 MG Tablet PO SCH (09:11)
[2018-06-26] MEDS: Sertraline 50 MG Tablet PO SCH (09:11)
[2018-06-26] MEDS: Multivitamin/Minerals Therapeutic Tablet PO SCH (09:11)
--- NOTE | 2018-06-26 15:04 | P.PNPSY ---
Subjective Remarks: Reviewed electronic medical record and discussed with nursing staff. Rounded with STEPHEN Pérez. Patient in bed, sweating and working through his alcoholism. He is currently on the CIWA protocol. Nursing reports that earlier he was hallucinating and behavior was bizarre as he was trying to ride the half door at the nursing station. He appears more alert, less intrusive and less bizarre. He is answering questions appropriately. Continue to monitor. Denies SI/HI. Encouraged him to take a shower when he feels that he can stand independently. Review of Systems All other systems reviewed negative except as stated in HPI Mental Status Examination Appearance: Disheveled Consciousness: Alert Orientation: x4 Motor Activity: Normal gait Speech: Hesitant, Slow Language: Adequate Fund of Knowledge: Adequate Attention and Concentration: Easily distracted Memory: Unremarkable Mood: Anxious Affect: Anxious (Lessening) Thought Process & Associations: Intact, Logical Thought Content: Appropriate Hallucination Type: Visual Delusion Type: None Suicidal Ideation: No Suicidal Plan: No Suicidal Intention: No Homicidal Ideation: No Homicidal Plan: No Homicidal Intention: No Insight: Fair Judgment: Impulsive Assessment and Plan - Assessment (1) Alcohol abuse Code(s): F10.10 - Alcohol abuse, uncomplicated Status: Acute (2) Major depressive disorder Code(s): F32.9 - Major depressive disorder, single episode, unspecified Status : Acute - Plan Plan: Continue current treatment plan Justification for Continued Inpatient Stay: Moving patient to a less restrictive environment may result in his decompensation.
[2018-06-26 19:16] VITALS: RESP 18; O2SAT 96
[2018-06-26] MEDS: LORazepam 1 MG Tablet PO PRN (21:58)
[2018-06-27 06:43] VITALS: BP 155/98; PULSE 62; TEMP 98.9
[2018-06-27] MEDS: Sertraline 50 MG Tablet PO SCH (09:07)
[2018-06-27] MEDS: Multivitamin/Minerals Therapeutic Tablet PO SCH (09:07)
[2018-06-27] MEDS: Folic Acid 1 MG Tablet PO SCH (09:07)
--- NOTE | 2018-06-27 17:00 | P.DSPSY ---
Psychiatry Discharge Summary Inpatient Psychiatric care?: Yes Advance Directives: No Mental Health Advance Directive: No Health Care Proxy: No - Admission Admission Date: June 22, 2018 10:48 - Admission Diagnosis (1) Alcohol abuse Code(s): F10.10 - Alcohol abuse, uncomplicated (2) Major depressive disorder Code(s): F32.9 - Major depressive disorder, single episode, unspecified Brief History: Patient is a 48-year-old man, , has 4 children, domiciled sister and mother, with a legal history significant for previous DUIs, past psychiatric history of depression, alcohol use disorder, denies prior psychiatric admissions, reports one previous suicide attempt via cutting it years ago, remote history of cutting as a teenager, no outpatient mental health provider at this time, brought in by sister due to having suicide ideation in the context of cocaine and alcohol intoxication which patient was admitted to the inpatient psychiatry for further evaluation and management. As per chart patient was brought in by sister endorsing suicide ideation which he had brought over his firearms to her sister asking for help stating that he wanted to end it all. Patient's BAL was 331, cocaine positive on urine toxicology, noted to have mild hyponatremia as per labs. Patient was Shah act by ED physician. Patient was found lying in hospital bed noted to be cooperative, noted to have mild tremors noted with some speech delay. Patient states that he has been drinking on a daily basis for the past 3 months but was 6 months prior sober. He states his longest sobriety was 1-1/2 years after rehabilitation program [address] at that time. He reports for the past couple of weeks that he is having disruptive sleep, decreased appetite energy and concentration along with feeling less motivated and feeling depressed for the past 2-3 weeks along with suicide ideation. He states that stressors include having difficulty to quit drinking, having to pay child support and work not being steady. He reports also having had hopelessness and helplessness which occurred on and off but denying any auditory hallucinations. He states that recently been having visual hallucinations which he believes is secondary to his withdrawal but denying any suicide ideation at this time. He states having a sister is firearms due to his concern of having suicide ideations. Patient agrees to voluntary admission and agrees to starting antidepressant treatment along with continued medical management of his withdrawal at this time. Patient states being interested in rehabilitation program to engage in again but unsure whether he would like inpatient versus outpatient. This will be continued to be explored during his admission. Family psychiatric history: Aunt with depression, no suicides in the family Past psychiatric history: Previous psychiatric diagnoses depression, alcohol use disorder, denies any previous psychiatric admissions, history of 1 suicide attempt via cutting, 8 years ago, reports remote history of self interest behavior cutting as a teenager. Patient has no outpatient mental health follow- up, reports previous medication trials include Prozac and Wellbutrin which he last took 2 years ago. Substance use history: Alcohol use daily as stated in HPI, denies any drug use although urine toxicology was positive for cocaine, reports marijuana use 1-2 times per year. Patient has had one previous rehabilitation program 2000 as stated above. Past OB history: Hypertension, arthritis, was having suffered one seizure after head trauma 2004 Allergies: Penicillin Social history: , high school graduate, has 4 children, domiciled sister and mother, legal history of previous DUIs and driving with a suspended license, currently employed. Tobacco Use In Past 30 Days: No How Often Do You Have a Drink Containing Alcohol: 4 or more times a week Hospital Course: Patient is a 48-year-old man, , has 4 children, domiciled sister and mother, with a legal history significant for previous DUIs, past psychiatric history of depression, alcohol use disorder, denies prior psychiatric admissions, reports one previous suicide attempt via cutting it years ago, remote history of cutting as a teenager, no outpatient mental health provider at this time, brought in by sister due to having suicide ideation in the context of cocaine and alcohol intoxication which patient was admitted to the inpatient psychiatry for further evaluation and management. Patient was admitted to a locked, inpatient psychiatric unit. Appropriate precautions were in place throughout patient's hospital stay. Patient was seen and examined on the unit by psychiatry. Psychotropic medications were adjusted. There was no further evidence of any suicidality; no homicidality on the inpatient unit. Patient's mood improved with the benefit of psychopharmacological treatment and had no behavioral disturbance since admission. Patient was noted to have reached stable mood, noted to participate and engage in treatment and interact with staff adequately. Patient noted to be future oriented with plans to continue treatment and outpatient follow-up appointments for continuity of care. Counselor has arranged discharge plan which patient will return back to sister's residence. On the day of discharge: Patient seen and examined; chart reviewed. Case discussed with nurse and counselor. No behavioral issues overnight. On my examination today, the patient denies any suicidal homicidal ideation, intent or plan on direct questioning and contracts for safety. Patient denies any perceptional disturbances and no delusional material verbalized today. Patient denies any side effects from medication and has understanding of medication regimen and education. No physical complaints. Suicide and violence risk assessment on day of discharge both suggest lower imminent risk, and the patient's level of function is adequate for plan level of outpatient care. Patient has maximized benefit from this inpatient psychiatric hospital stay and will be discharged with discharge plan as arranged by counselor. Patient advised to return to psychiatric emergency room for any concerning psychiatric symptoms. Patient agrees with plan. - Discharge Discharge Date: 06/27/18 - Discharge Diagnosis (1) Major depressive disorder Code(s): F32.9 - Major depressive disorder, single episode, unspecified Status : Acute (2) Alcohol abuse Code(s): F10.10 - Alcohol abuse, uncomplicated Status: Acute Discharge Disposition: Home - Discharge Instructions Discharge Diet: Heart Healthy Diet Activities You Can Perform: Weight Bearing As Tolerat - Discharge Time > 30 minutes Mental Status Examination Appearance: Appropriate Consciousness: Alert Orientation: x4 Motor Activity: Normal gait Speech: Unremarkable Language: Adequate Fund of Knowledge: Adequate Attention and Concentration: Easily distracted Memory: Unremarkable Mood: Anxious Affect: Anxious (Lessening) Thought Process & Associations: Intact, Logical Thought Content: Appropriate Hallucination Type: Visual Delusion Type: None Suicidal Ideation: No Suicidal Plan: No Suicidal Intention: No Homicidal Ideation: No Homicidal Plan: No Homicidal Intention: No Insight: Fair Judgment: Impulsive Discharge/Advance Care Plan - Results Vital Signs: Last Vital Signs Temp 98.9 F 06/27/18 06:41 Pulse 62 06/27/18 06:41 Resp 18 06/27/18 06:41 BP 155/98 H 06/27/18 06:41 Pulse Ox 96 06/27/18 06:41 Lab Results: Laboratory Results Hemoglobin A1c 5.3 % (4.3-6.0) 06/23/18 06:42 Triglycerides 117 mg/dL (42-150) 06/23/18 06:42 Cholesterol 257 mg/dL (120-200) H 06/23/18 06:42 LDL Cholesterol, Calc 134 mg/dL (0-99) H 06/23/18 06:42 HDL Cholesterol 99.5 mg/dL (40.0-60.0) H 06/23/18 06:42 Summary of Procedures: none Pending Results: None - Medications Number of antipsychotic medications at discharge: 0 - Discharge Care Plan Goals to Promote Your Health: * To prevent worsening of your condition and complications * To maintain your health at the optimal level Directions to Meet Your Goals: Take your medications as prescribed Follow your dietary instruction Follow activity as directed Keep your appointments as scheduled Take your immunizations and boosters as scheduled If your symptoms worsen call your PCP, if no PCP go to Urgent Care Center or Emergency Room For 30/11 questions related to your inpatient stay or results of tests pending at discharge, please contact Dr. Finn Mckeon MD at Smoking is Dangerous to Your Health. Avoid second hand smoking
== END 2018-06-27 14:45 | disposition home or self-care (01) | DRG 881 ==
LOC: NEPJ 20:50 → NEDA 06-22 10:48 → H4EA 06-22 11:42
PROVIDERS: ADMIT Student in an Organized Health Care Education/Training Program; ATTEND Student in an Organized Health Care Education/Training Program
CPT/HCPCS: 80048; 80053; 80061; 80307; 83036; 85025; 90791; 93005; 97162; 99285; J2060; Q0163